=== PATIENT | male | born 2000 | race Caucasian/White ===

== ENCOUNTER 2023-08-21 07:03 | Emergency (ER) | payer OTHER, SELFPAY ==
[2023-08-21 07:04] VITALS: BP 143/93
[2023-08-21 07:26] VITALS: BMI 33.9
--- NOTE | 2023-08-21 07:29 | ED.GENMED ---
History of Present Illness
General
Chief Complaint: Abdominal Pain
Source: patient and family
Exam Limitations: none
Time Seen by Provider: 08/21/23 07:15
Nursing documentation reviewed up to this point in time: agreed with
Travel History
Have you had any contact with someone who has COVID-19?: No
Do you have any symptoms of coronavirus? Fever > 100 degrees, chills, cough, shortness of breath, sore throat, loss of taste or smell, muscle aches, or headache?: No
History of Present Illness
History of Present Illness:
Patient is a 23-year-old male presents today for evaluation. Patient reports he has had reflux for a while but has not been evaluated by physician for this. For the past 2 weeks he has had a lot of worsening reflux and because of the reflux he has
vomited. He reports reflux tends to be very bad at nighttime especially worse when he is lying down and he will typically vomit at night because of this. This morning he got up and felt a lot of pain in the epigastric area which is what prompted
him to come to the ER. He denies any associated fever or chills. He denies any back pain. He denies any lower abdominal pain. Has not had anything for the pain. He does admit to eating a very bland diet consistent with fried foods.
Past History
Past History
ED Past Medical History: None
Social History
Tobacco: Non-smoker
Alcohol: None
Drug: None
Living: with family
Employment: Employed
Review of Systems
Review of Systems
Allergies reviewed?: Yes
All Other Systems: ROS reviewed and negative except as documented in HPI and ROS
Constitutional: Reports no symptoms; Denies fever
Cardiac: Reports no symptoms
ABD/GI: Reports abdominal pain, nausea, vomiting and other (reflux ); Denies diarrhea or constipated
Musculoskeletal: Reports no symptoms
Skin: Reports no symptoms
Neurological: Reports no symptoms
Psychiatric: Reports no symptoms
Phy Exam
General Physical Exam
General Presentation: no apparent distress
General age: appears stated age
General Skin: warm and dry
General Habitus: normal
General Mental: alert
General Hydration: appears well hydrated
Gastrointestinal Exam
Gastrointestinal Exam: soft and other (epigastric tenderness )
Neurological Exam
Neurological Exam: alert and oriented x3
Musculoskeletal Exam
Musculoskeletal Exam: full ROM
Skin Exam
Skin Exam: normal color and warm/dry
Psychiatric Exam
Psychiatric Exam: normal mood/affect
Course
Orders/Labs/Results
Orders:
Orders
08/21/23 07:27
IV Insert/Care/Rem.- Treatment PRN
0.9% Sodium Chloride 1000 ml [Nss] 1,000 ml IV BOLUS
Ondansetron Injectable [Zofran] 4 mg IV NOW STA
Pantoprazole [Protonix IV] 40 mg IV NOW STA
US Abdomen Complete/Upper Urgent
Comment:
Reason For Exam: upper abd pain
08/21/23 07:29
Mag Hydrox/Al Hydrox/Simeth [Maalox] 30 ml Phenobarb/Hyoscy/Atropine/Scop [] 10 ml PO NOW
08/21/23 07:37
Complete Blood Count/With Diff Urgent
Comprehensive Metabolic Panel Urgent
Lipase Urgent
08/21/23 08:22
Mag Hydrox/Al Hydrox/Simeth [Maalox] 30 ml .ROUTE .STK-MED ONE
Phenobarb/Hyoscy/Atropine/Scop [] 10 ml .ROUTE .STK-MED ONE
Abnormal Lab Results
08/21/23
07:37
MCHC 32.3 L g/dL
(33.0-37.0)
Absolute Monos (auto) 0.8 H 10^3/uL
(0.1-0.6)
Monocytes % 9.8 H %
(1.7-9.3)
05/01/24 07:37
08/21/23 07:37
Vital Signs
Initial and Last Documented VS:
Initial Vital Signs
Temp Pulse Resp BP Pulse Ox
98.0 F 67 16 143/93 99
08/21/23 07:04 08/21/23 07:04 08/21/23 07:04 08/21/23 07:04 08/21/23 07:04
Last Documented Vital Signs
Temp Pulse Resp BP Pulse Ox
98.0 F 67 16 143/93 99
08/21/23 07:04 08/21/23 07:04 08/21/23 07:04 08/21/23 07:04 08/21/23 07:04
MDM/Problems Addressed
Differential Diagnosis Includes:
Not limited to reflux, gastritis less likely biliary colic
MDM/Problems Addressed:
Symptoms are consistent with GERD/gastritis. Patient is had reflux however symptoms became severe last night. Patient is tender in the epigastric area no vomiting blood no dark stools or bloody stools. Patient with no right upper quadrant
tenderness normal LFTs no acute biliary colic on ultrasound. Patient had a GI cocktail and Protonix IV here feels much better. Ultrasound shows borderline hepatomegaly with findings compatible with diffuse steatosis no other acute findings. Labs
unremarkable. Will DC on Protonix and close outpatient follow-up with GI. Discussed dietary changes and to return if any worsening of symptoms not limited
*Critical Care Note
Total Time (30-74mins, 75-104mins- exclusive of procedures): Not Applicable
ED Attending Note
-
Portions of this chart may have been created with voice recognition software.� Occasional wrong word or��sound alike� substitutions may have occurred due to the inherent limitations of voice recognition software.
Discharge Plan
Departure
Patient Disposition: Home (Routine Discharge)
Date of Disposition: 08/21/23
Time of Disposition: 09:29
Patient with high blood pressure during this ER visit?: Yes
Condition: Fair
Covid-19: Not Applicable
Discharge Problem:
Gastritis
Instructions: Acid Reflux and GERD in Adults (DC), Gastritis (DC), BLOOD PRESSURE
Prescriptions:
New
pantoprazole [Protonix] 40 mg tablet,delayed release (DR/EC)
40 mg PO DAILY Qty: 14 0RF
No Action
No Meds [No Current Medications]
0
ibuprofen 600 MG tablet
600 mg PO Q6H Qty: 30 0RF
cephalexin 500 MG capsule
500 mg PO QID Qty: 39 0RF
Referrals:
Polo Hess MD [Active] -
UNKNOWN - PT DOES,NOT KNOW [Family Provider] -
Activity Restrictions/Additional Instructions:
A prescription for Protonix was sent to her pharmacy take daily for the next 2 weeks. This medication was sent to your pharmacy. As discussed it is very important that you avoid spicy foods fried foods acidic foods caffeine chocolate coffee.
Follow-up with your family doctor the next several days for reevaluation as well as GI. Return if any worsening of symptoms.
Interventions
Interventions:
*Risk Screen - Suicide Last Done: 08/21/23 07:05
*General Assessment Last Done: 08/21/23 07:05
*Neglect/Abuse Screening Last Done: 08/21/23 07:22
PQ-Itpdtq-Bqpuapiqcu Assessment Last Done: 08/21/23 07:22
Discharge Date and Time
Print Language: BELARUSIAN
[2023-08-21] MEDS: ZOFRAN 4 MG IV (07:40)
[2023-08-21] MEDS: NSS 1000 IV (07:40)
[2023-08-21] MEDS: PROTONIX IV 40 MG IV (07:41)
[2023-08-21 07:48] LABS: % Basophils 0.8 % (0-2); % Eosinophils 2.2 % (0-6); % Immature Granulocytes 0.2 % (0-0.5); % Lymphocytes 36.1 % (20.5-51.1); % Monocytes 9.8 % (1.7-9.3); % Neutrophils 50.9 % (42.2-75.2); Absolute Basophils 0.1 10^3/uL (0-0.2); Absolute Eosinophils 0.2 10^3/uL (0-0.7); Absolute Monocytes 0.8 10^3/uL (0.1-0.6); Absolute Neutrophils 4.2 10^3/uL (1.4-6.5); Hematocrit 46.4 % (39.0-52.0); Mean Corp Hgb Conc. 32.3 g/dL (33.0-37.0); Mean Corpuscular Hgb 29.2 pg (27.0-31.0); Mean Corpuscular Volume 90.3 fL (80.0-94.0); Mean Platelet Volume 9.1 fL (7.4-10.4); Nucleated Red Blood Cells % 0 % (-); Platelet Count 297 10^3/uL (130-400); Red Blood Cell Count 5.14 10^6/uL (4.70-6.10); Red Cell Dist. Width 12.6 % (11.5-14.5); White Blood Cell Count 8.3 10^3/uL (4.8-10.8)
[2023-08-21 08:07] LABS: ALT (SGPT) 28 U/L (0-50); AST (SGOT) 21 U/L (17-59); Albumin 4.5 g/dl (3.5-5.0); Alkaline Phosphatase 67 U/L (38-126); Blood Urea Nitrogen 14 mg/dl (9-20); Calcium 9.7 mg/dl (8.4-10.2); Carbon Dioxide 25 mmol/L (22-30); Chloride 106 mmol/L (98-107); Estimated Creatinine Clearance > 125 ml/min; Glucose 97 mg/dl (70-99); Potassium 4.7 mmol/L (3.5-5.1); Sodium 138 mmol/L (135-145); Total Bilirubin 0.5 mg/dl (0.2-1.3); eGFR > 60.00
[2023-08-21 08:11] LABS: Lipase 64 U/L (23-300)
[2023-08-21] MEDS: MAALOX 30 PO (08:24)
[2023-08-21 10:04] VITALS: BP 132/72
== END 2023-08-21 10:06 | disposition home or self-care (01) ==
LOC: EMR 07:03
PROVIDERS: Nurse Practitioner; EMERGENCY PHYSICIAN Emergency Medicine
DX: K29.70 Gastritis, unspecified, without bleeding (principal); R03.0 Elevated blood-pressure reading, without diagnosis of hypertension; K21.9 Gastro-esophageal reflux disease without esophagitis
CPT/HCPCS: 99284; 96374; 96375; 96361; 76700; 80053; 83690; 85025

== ENCOUNTER 2024-10-19 09:15 | Emergency (ER) | payer OTHER, SELFPAY ==
[2024-10-19 09:17] VITALS: BP 123/90
--- NOTE | 2024-10-19 10:01 | ED.GENMED ---
History of Present Illness
General
Chief Complaint: Fall
Source: patient
Time Seen by Provider: 10/19/24 09:34
History of Present Illness
History of Present Illness:
24-year-old male with past medical history of anxiety presenting to the emergency department for evaluation after he tripped and fell yesterday evening injuring his right hand and left shoulder, states pain on the right hand seems to be closer to
the 3rd and 4th metacarpal, left shoulder more anteriorly. Patient notes diminished range of motion secondary to the pain. No other injuries were sustained. Denies head injury, LOC, vomiting, visual changes or any other extremity related concerns.
Past History
Past History
ED Past Medical History: Psychiatric
ED Past Surgical History: Orthopedic, Tonsilectomy and Other
Social History
Tobacco: Non-smoker
Alcohol: None
Drug: None
Personal:
Living: with family
Employment: Employed
Review of Systems
Review of Systems
All Other Systems: ROS reviewed and negative except as documented in HPI and ROS
Phy Exam
Physical Exam
Physical Exam:
GENERAL: Alert , in no apparent distress
EYE: conjunctiva clear
Head: Normocephalic atraumatic
NECK: Supple,
ENT: mmm.
LUNGS: no acute respiratory distress
NEUROLOGICAL: Alert and oriented
SKIN: Warm and dry, skin intact.
MUSCULOSKELETAL: Left upper extremity: No obvious deformity, erythema, edema, ecchymosis, abrasion or laceration. There is diminished range of motion of the left shoulder due to pain. Tenderness over the lateral clavicle and AC joint. Remainder
of extremity has full range of motion and neurovascularly intact. Right upper extremity: There is soft tissue swelling over the 3rd and 4th metacarpal with mild tenderness. Patient allows for range of motion of the digits, slight pain with flexion
and extension of the wrist but no focal bony tenderness. Easily palpable radial pulse. Cap refill less than 2 seconds and sensation is grossly intact to light touch.
PSYCH: Normal and appropriate interaction.
Scores
Heart Failure Risk
Heart Failure Risk Score: Not Applicable
Heart Score for Chest Pain Patients
STEMI patient?: Not applicable
Withdrawal Assessment of Alcohol
Withdrawal Assessment Completed?: Not applicable
Course
Orders/Labs/Results
Orders:
Orders
10/19/24 09:19
CR Hand - Right Min 3 Views Urgent
Comment:
Reason For Exam: fall yesterday
Shoulder, Left, Trauma CR [CR Shoulder, Trauma - Left] Urgent
Comment:
Reason For Exam: fall yesterday
10/19/24 10:07
Sling Left-Treatment ONCE
Vital Signs
Initial and Last Documented VS:
Initial Vital Signs
Temp Pulse Resp BP Pulse Ox
98.3 F 76 16 123/90 98
10/19/24 09:17 10/19/24 09:17 10/19/24 09:17 10/19/24 09:17 10/19/24 09:17
Last Documented Vital Signs
Temp Pulse Resp BP Pulse Ox
98.3 F 76 16 123/90 98
10/19/24 09:17 10/19/24 09:17 10/19/24 09:17 10/19/24 09:17 10/19/24 10:04
MDM/Problems Addressed
Differential Diagnosis Includes:
- Sprain
- Contusion
- Fracture
- Dislocation
- Tendinitis
MDM/Problems Addressed:
24-year-old male presenting to the ER for evaluation of left shoulder and right hand pain from neck since a fall yesterday evening. Diminished range of motion of the left shoulder and right hand. X-rays ordered from triage show no acute fracture.
There does appear to be a questionable mild AC joint separation. Patient notes that he did have previous AC joint sprains from football injuries in the past and has seen Dr. Valenzuela from orthopedics previously. Will place in a sling for comfort,
NSAIDs/Tylenol for pain control. Encouraged outpatient follow-up with orthopedics as needed. Otherwise stable for discharge home.
*Radiology
Radiology exam reviewed: preliminary read by ED provider (No fracture, suspected AC joint sprain)
*Pulse Oximetry
SaO2: 98
Oxygen Mode of Delivery: Room air
Patient hypoxic: no
*Critical Care Note
Total Time (30-74mins, 75-104mins- exclusive of procedures): Not Applicable
ED Attending Note
-
Portions of this chart may have been created with voice recognition software.� Occasional wrong word or��sound alike� substitutions may have occurred due to the inherent limitations of voice recognition software.
Discharge Plan
Departure
Patient Disposition: Home (Routine Discharge)
Date of Disposition: 10/19/24
Time of Disposition: 10:02
Patient with high blood pressure during this ER visit?: No
Discharge Problem:
Accidental fall, Left shoulder pain, Contusion of hand, right
Instructions: Shoulder Sprain ED
Prescriptions:
No Action
No Meds [No Current Medications]
0
ibuprofen 600 MG tablet
600 mg PO Q6H Qty: 30 0RF
cephalexin 500 MG capsule
500 mg PO QID Qty: 39 0RF
pantoprazole [Protonix] 40 mg tablet,delayed release (DR/EC)
40 mg PO DAILY Qty: 14 0RF
Referrals:
Celio Aldrich DO [Family Provider, Internal Medicine]
Vita Valenzuela DO [Active, Orthopedics]
Interventions
Interventions:
*Risk Screen - Suicide Last Done: 10/19/24 09:17
*General Assessment Last Done: 10/19/24 10:19
*Neglect/Abuse Screening Last Done: 10/19/24 09:17
*Nursing Disposition Last Done: 10/19/24 10:19
ED-Musculoskeletal Assessment Last Done: 10/19/24 09:53
ED- Neurological Assessment Last Done: 10/19/24 09:53
ED-Skin Assessment Last Done: 10/19/24 09:53
Discharge Date and Time
Print Language: YAKUT
== END 2024-10-19 10:19 | disposition home or self-care (01) ==
LOC: EMR 09:15
PROVIDERS: EMERGENCY PHYSICIAN Emergency Medicine; FAMILY PHYSICIAN Internal Medicine
DX: S60.221A Contusion of right hand, initial encounter (principal); M25.512 Pain in left shoulder; W01.0XXA Fall on same level from slipping, tripping and stumbling without subsequent striking against object, initial encounter
CPT/HCPCS: 99283; 73030; 73130